=== PATIENT | male | born 1970 | race Caucasian/White ===

== ENCOUNTER 2017-08-06 18:51 | Emergency (ER) | payer SELFPAY ==
[2017-08-06] MEDS ORDERED: Ketorolac Tromethamine 60 MG/2 ML VIAL ONE (19:59)
== END 2017-08-06 20:20 | disposition home or self-care (01) ==
LOC: SCSER 18:51
DX: M54.5 Low back pain (principal); F17.210 Nicotine dependence, cigarettes, uncomplicated
CPT/HCPCS: 96372; J1885